=== PATIENT | female | born 1955 | race Caucasian/White ===

== ENCOUNTER 2020-07-22 01:06 | Outpatient (CLI) | payer OTHER, SELFPAY ==
[2020-07-22 18:21] LABS: SARS-CoV-2 RNA PCR Negative
== END 2020-07-22 01:07 | disposition home or self-care (01) ==
LOC: ANHCOVIDDT 01:07
PROVIDERS: PCP Internal Medicine; Visit Provider Urology
DX: Z01.818 Encounter for other preprocedural examination (principal); Z20.828 Contact with and (suspected) exposure to other viral communicable diseases
CPT/HCPCS: 87635; C9803; U0003

== ENCOUNTER 2020-07-22 11:20 | Outpatient (CLI) | payer OTHER, SELFPAY ==
--- NOTE | 2020-07-22 11:23 | ECG_ITS ---
Measurements Intervals [place] Rate: 94 P: 37 CO: 153 QRS: 10 QRSD: 74 T: 59 QT: 364 QTc: 455 Interpretive Statements SINUS RHYTHM NONSPECIFIC ST & T-WAVE ABNORMALITY- DIFFUSE LEADS BASELINE ARTIFACT- I, III, AVR, AVL, AVF, V1-V6 BORDERLINE ECG Electronically Signed On 07-22-2020 12:03:15 ELEMENTARY PRINCIPAL by True Driscoll D.O.
[2020-07-22 11:59] LABS: INR 0.9; Prothrombin Time 12.5 Seconds (11.1-14.7)
[2020-07-22 12:00] LABS: Partial Thromboplastin Time 27.5 SECONDS (22.3-36.8)
[2020-07-22 12:02] LABS: Anion Gap 8 mmol/L (8-16); Blood Urea Nitrogen 19 mg/dL (7-17); Calcium 8.8 mg/dL (8.4-10.2); Carbon Dioxide 29 mmol/L (22-30); Chloride 102 mmol/L (98-107); Estimated Glomerular Filt Rate 56; Glucose 308 mg/dL (65-105); Potassium 4.7 mmol/L (3.4-5.0); Sodium 139 mmol/L (137-145)
== END 2020-07-22 11:21 | disposition home or self-care (01) ==
LOC: ANHSURGERY 11:23
PROVIDERS: Anesthesiology; PCP Internal Medicine; Visit Provider Urology
DX: N20.0 Calculus of kidney (principal); E11.9 Type 2 diabetes mellitus without complications; I10 Essential (primary) hypertension; Z01.818 Encounter for other preprocedural examination
CPT/HCPCS: 36415; 80048; 85610; 85730; 87086; 87088; 93005

== ENCOUNTER 2020-07-24 01:49 | Day surgery (SDC) | payer OTHER, SELFPAY ==
[2020-07-21 15:42] VITALS: BMI 32.8
[2020-07-24] VITALS (8 sets, daily range): BP systolic 129–185; BP diastolic 72–97; PULSE 86–110; RESP 12–20; TEMP 36.6–36.7; O2SAT 96–100
--- NOTE | ~2020-07-24 | XR_ITS ---
EXAMINATION: XR abdomen/kub 1V EXAM DATE: 07/24/2020 06:17 INDICATION: Right-sided lithotripsy scheduled. TECHNIQUE: Frontal projection(s) of the abdomen for interpretation. There is no prior study for leda alfredo. FINDINGS: Multiple densities projecting over the gluteal regions probably soft tissue granulomas. Dif ficult to identify any definite nephrolithiasis but correlation with prior imaging would be helpful. There are mild bony degenerative changes. Nonobstructive bowel gas pattern. IMPRESSION: Soft tissue calcifications. Reviewed, dictated and finalized at location A. RAFT ENGINE TECHNICIAN IMPRESSION: Soft tissue calcifications.
--- NOTE | 2020-07-24 06:37 | WPDHPUPDATE1 ---
History and Physical Update Update Date/Time: 07/24/20 06:37 History and Physical has been reviewed, including an updated exam of the patient. There are NO changes in the patient's condition. Risks, benefits, and alternatives have been discussed and questions answered. Patient agrees to proceed with procedure.
--- NOTE | 2020-07-24 06:58 | WPDANESEPPF ---
Anes - Initial Pre Proc Eval Procedure: Operation Date: 07/24/20 07:30 Proposed Procedures p Right Renal Extracorporeal Shock Wave Lithotripsy - Alexander Tidwell MD s Cystoscopy, Right Stent Placement, Left Ureteroscopy - Alexander Tidwell MD Date/Time: 07/24/20 06:58 Surgeon: Alexander Tidwell MD Pre Op Diagnosis: right renal stone, left ureteral stone Patient Data Age: 65 Gender: F Height: 5 ft 3 in Weight: 84 kg Allergies Allergy/AdvReac Type Severity Reaction Status Date / Time clavulanic acid AdvReac Mild Flushing Verified 07/24/20 06:56 [From Augmentin] Sulfa (Sulfonamide AdvReac Mild Flushing Verified 07/24/20 06:56 Antibiotics) Home Medications Medication Instructions Recorded Confirmed Type glimepiride 1 mg PO BID 07/21/20 07/24/20 History losartan 100 mg PO QAM 07/21/20 07/24/20 History metformin 1,000 mg PO BID 07/21/20 07/24/20 History rosuvastatin 10 mg PO HS 07/21/20 07/24/20 History semaglutide [Ozempic] 2 mg SUBCUT WEEKLY 07/21/20 07/24/20 History Patient hx anesthesia problems: none Family hx anesthesia problems: none PMFSH Past Medical History Medical History Diabetes Hyperlipidemia Hypertension Family History Family History Other Family history of malignant neoplasm Social History Social History Smoking status: Former smoker Smoking end date: 02/18/78 Additional smoking assessment comments: 1 PACK/WEEK X 3 YEARS TOTAL Alcohol intake: never Substance use: never Living arrangements: with family Spiritual care concerns: No Anes - Eval Final PreProcedure Day of Procedure 07/24/20 06:58 Patient weight: obese Heart: regular rate and rhythm Lungs: clear to auscultation Airway: Mallampati scale class II Neurological: alert and oriented Last oral intake: >/= 8 hours ASA classification: III Emergent: no Anesthetic plan: proceed Anesthesia type and monitoring: general LMA and standard monitoring Informed Consent: The patient's anesthetic plan and its attendant risks and benefits were discussed with the patient/family/POA. Questions were solicited and answers provided to the satisfaction of the patient/family/POA.
[2020-07-24] MEDS: LACTATED RINGERS 1,000 ML 30 ML IV CONT (07:00)
[2020-07-24 07:12] LABS: Glucose Point of Care 210 (65-105)
[2020-07-24] MEDS: ceFAZolin 2 GM/D5W 50 ML 2 GM/50 ML BAG IVPB (07:19)
--- NOTE | 2020-07-24 07:57 | PM.PROC ---
Procedure Note - Detailed Date of procedure: 07/24/20 Pre-op diagnosis: right renal stone, left ureteral stone Post-op diagnosis: same (Right renal stone) Procedure performed: Description of procedure: Patient is brought to the operative suite where she was first prepped draped in routine sterile fashion while a dorsal lithotomy position. Cystoscopy and left ureteroscopy undertaken with a short taper semi rigid ureteral scope. The bladder was endoscopically normal without performed via neoplasm. Left distal ureteroscopy was undertaken to the iliac vessels without any to place a wire or stent. There are no ureteral stones or other identifiable pathology. 0.035 in guidewire was advanced in the right renal pelvis and 4.8 F variable length stent with the proximal coil in the renal pelvis and the distal coil bladder. Scopes wires were removed and she was placed in the supine position. Lithotripsy was undertaken the [employer] Lithotripter. A total of 2500 shocks were delivered at a power setting 5. This treatment was for a 24mm right renal pelvic stone. Anesthesia: GLMA Surgeon: Alexander Tidwell MD Estimated blood loss (mL): 0 Drains: Yes (4.8F right renal stent) Packing: No Pathology: none sent Complications: No immediate complications Condition: stable Disposition: PACU
[2020-07-24 08:37] LABS: Glucose Point of Care 225 (65-105)
--- NOTE | 2020-07-24 09:25 | SUR.PHASEII ---
7949- from pacu. ambulated to bathroom. feels need to urinate.
== END 2020-07-24 10:26 | disposition home or self-care (01) ==
PROVIDERS: PCP Internal Medicine; Visit Provider Urology
PROC: (CPT 50590; principal; 2020-07-24 07:30)
PROC: (CPT 52352; 2020-07-24 07:30)
DX: N20.0 Calculus of kidney (principal); I10 Essential (primary) hypertension; E87.5 Hyperkalemia; E11.9 Type 2 diabetes mellitus without complications; Z79.84 Long term (current) use of oral hypoglycemic drugs; Z87.891 Personal history of nicotine dependence; E66.9 Obesity, unspecified; Z68.36 Body mass index [BMI] 36.0-36.9, adult
CPT/HCPCS: 52332; 50590; 36415; 74018; 80048; 85610; 85730; 87086; 87088; 87635; 93005; A9270; C1769; C1894; C2617; C9803; J0690; J1100; J2250; J2370; J2405; J2704; J7120; U0003

== ENCOUNTER 2020-08-31 11:09 | Outpatient (CLI) | payer OTHER, SELFPAY ==
--- NOTE | ~2020-08-31 | XR_ITS ---
EXAMINATION: XR abdomen/kub 1V INDICATION: Right-sided kidney stone TECHNIQUE: Supine views of the abdomen were obtained on 2 radiographs. COMPARISON: 07/24/2020 FINDINGS: A right internal ureteral stent has been placed in expected position. No definite urolithia sis is identified. The bowel gas pattern is normal. Soft tissue calcifications projecting in the pelv is are likely within the gluteus muscles and are of unclear significance. IMPRESSION: 1. Right internal ureteral stent placed in expected position. No definite urolithiasis identified. Reviewed, dictated and finalized at location A. ERCIAL CREDIT OFFICER IMPRESSION: 1. Right internal ureteral stent placed in expected position. No definite uroli thiasis identified.
== END 2020-08-31 11:10 | disposition home or self-care (01) ==
PROVIDERS: PCP Internal Medicine; Visit Provider Urology
DX: N20.0 Calculus of kidney (principal)
CPT/HCPCS: 74018

== ENCOUNTER 2020-09-03 14:22 | Outpatient (CLI) | payer OTHER, SELFPAY ==
--- NOTE | ~2020-09-03 | CT_ITS ---
EXAMINATION: CT abdomen pelvis wo con DATE: 09/03/2020 14:47 INDICATION: Right kidney stone. TECHNIQUE: Computed tomography (CT) of the abdomen and pelvis was performed without intravenous contr ast. Automated exposure control and iterative reconstruction technique were employed. The dose-length product was 567.23 mGy-cm. COMPARISON: None. FINDINGS: The visualized portions of the lung bases demonstrate minimal atelectasis. There is a 4 mm nodule in right lower lobe, likely benign. No pleural effusion. The heart size is normal. There are c oronary artery calcifications. No pericardial effusion. There is diffuse hepatic steatosis. The splee n, gallbladder, pancreas, and adrenal glands are normal. There is cortical thinning of the kidneys. T here is an 8 mm stone or tight cluster of stones in right kidney. There is a 4 mm stone in right kidn ey. There is a right internal ureteral stent in expected position. There are four 1-2 mm stones in ri ght kidney along the stent. There is diverticulosis of the colon without evidence of diverticulitis. There are no dilated loops of bowel. The appendix is normal. There are no pathologically enlarged lym ph nodes. There is no free intraperitoneal fluid. There is an umbilical hernia containing fat. There is calcified old fat necrosis in the buttocks bilaterally. There is mild thoracolumbar spondylosis. IMPRESSION: 1. Right kidney stones with right internal ureteral stent in expected position. Reviewed, dictated and finalized at location A. ET TRIMMER
== END 2020-09-03 14:23 | disposition home or self-care (01) ==
PROVIDERS: PCP Internal Medicine; Visit Provider Urology
DX: N20.0 Calculus of kidney (principal)
CPT/HCPCS: 74176

== ENCOUNTER 2020-09-04 02:49 | Day surgery (SDC) | payer OTHER, SELFPAY ==
[2020-09-03 10:10] VITALS: BMI 36.3
--- NOTE | ~2020-09-04 | XR_ITS ---
EXAMINATION: XR retrograde pyelogram RT EXAM DATE: 09/04/2020 07:56 INDICATION: Stent removal, retrograde, stone extraction on the right. TECHNIQUE: Fluoroscopy used during XR retrograde pyelogram RT performed by Dr. Alexander Tidwell MD . The DAP for this procedure was 809 radcm2 Cine run(s) available for review. FINDINGS: Right ureter was cannulated, procedure equipment advanced to the right renal pelvis which was then injected. There is mild right hydronephrosis. Correlate with procedure note. IMPRESSION: Fluoroscopy used during XR retrograde pyelogram RT. Reviewed, dictated and finalized at location D. D WOOD TESTER
[2020-09-04 06:13] VITALS: BP 160/100; PULSE 115; RESP 20; TEMP 36.6; O2SAT 100
--- NOTE | 2020-09-04 06:42 | WPDANESEPPF ---
Anes - Initial Pre Proc Eval Procedure: Operation Date: 09/04/20 07:30 Proposed Procedures p Cystoscopy, Right Stent Removal with Stone Extraction - Alexander Tidwell MD s Possible Holmium Laser Procedure - Alexander Tidwell MD Date/Time: 09/04/20 06:42 Surgeon: Alexander Tidwell MD Pre Op Diagnosis: Right Kidney Stone Patient Data Age: 65 Gender: F Height: 5 ft 3 in Weight: 93 kg Allergies Allergy/AdvReac Type Severity Reaction Status Date / Time clavulanic acid AdvReac Mild Flushing Verified 09/03/20 10:09 [From Augmentin] Sulfa (Sulfonamide AdvReac Mild Flushing Verified 09/03/20 10:09 Antibiotics) Home Medications Medication Instructions Recorded Confirmed Type Ozempic 2 mg SUBCUT WEEKLY 07/21/20 09/03/20 History glimepiride 1 mg PO BID 07/21/20 09/03/20 History losartan 100 mg PO QAM 07/21/20 09/03/20 History metformin 1,000 mg PO BID 07/21/20 09/03/20 History rosuvastatin 10 mg PO HS 07/21/20 09/03/20 History Patient hx anesthesia problems: none Family hx anesthesia problems: none PMFSH Past Medical History Medical History Diabetes Hyperlipidemia Hypertension Family History Family History Other Family history of malignant neoplasm Social History Social History Smoking status: Former smoker Tobacco type: cigarettes Smoking end date: 02/18/78 Additional smoking assessment comments: STATES 1PK/WK/3YRS - QUIT 1977 Alcohol intake: never Substance use: never Living arrangements: with family Spiritual care concerns: No Anes - Eval Final PreProcedure Day of Procedure 09/04/20 06:42 Patient weight: obese Heart: regular rate and rhythm Lungs: clear to auscultation Airway: Mallampati scale class II Neurological: alert and oriented Last oral intake: >/= 8 hours ASA classification: III Emergent: no Anesthetic plan: proceed Anesthesia type and monitoring: general LMA and standard monitoring Informed Consent: The patient's anesthetic plan and its attendant risks and benefits were discussed with the patient/family/POA. Questions were solicited and answers provided to the satisfaction of the patient/family/POA.
--- NOTE | 2020-09-04 06:47 | WPDHPUPDATE1 ---
History and Physical Update Update Date/Time: 09/04/20 06:47 History and Physical has been reviewed, including an updated exam of the patient. There are NO changes in the patient's condition. Risks, benefits, and alternatives have been discussed and questions answered. Patient agrees to proceed with procedure.
[2020-09-04] MEDS: LACTATED RINGERS 1,000 ML 30 ML IV CONT (06:59)
[2020-09-04 07:06] LABS: Glucose Point of Care 285 (65-105)
[2020-09-04] MEDS: ceFAZolin 2 GM/D5W 50 ML 2 GM/50 ML BAG IVPB (07:24)
[2020-09-04] MEDS: LIDOCAINE HCL 2% GEL UROJET 10 ML PKG MUCOUS MEM (07:27)
[2020-09-04] MEDS: KETOROLAC 30 MG/ML VIAL (*BKC) 15 MG IV PUSH (07:53)
--- NOTE | 2020-09-04 07:57 | PM.PROC ---
Procedure Note - Detailed Date of procedure: 09/04/20 Pre-op diagnosis: Right Kidney Stone Post-op diagnosis: same Procedure performed: 1. Cystoscopy with right ureteral stent 2. Right retrograde pyelogram 3. Right ureteroscopy with stone extraction Description of procedure: Patient is brought to the cystoscopy suite where she is prepped and draped in routine sterile fashion while in dorsal lithotomy position after the uneventful induction of a general LMA anesthetic. Nineteen F rigid cystoscope was placed in the bladder. The bladder's without mucosal abnormalities except for some edema around the right ureteral orifices result of her indwelling stent. Tip of the stent is grasped and it is removed with ease. A 0.035 in glidewire was advanced into the right renal pelvis. Distal ureter dilated with an 8 F / 10 F dilator and a 12 F/ 14 F ureteral access sheath was placed. Retrograde pyelography is performed with 10 cc of contrast to outline the collecting system. Using a 7.5 F flexible ureteral scope all calices were inspected. She has multiple tiny for residual fragments following her lithotripsy. The largest of these are no bigger than 2 mm. The larger fragments were removed with a Zero tip basket. There probably 6 or 7 tiny fragments which were left in the mid pole calyx. A patient is intolerant of stents and therefore I opted not to replace it. Scopes was removed she was taken recovery in good condition Anesthesia: GLMA Surgeon: Alexander Tidwell MD Descriptive Catalog Librarian: None Estimated blood loss (mL): 0 Drains: No Packing: No Pathology: yes (Right kidney stones) Complications: No immediate complications Condition: stable Disposition: PACU
[2020-09-04 07:59] VITALS: BP 122/74; PULSE 87; RESP 13; TEMP 37.6; O2SAT 99
[2020-09-04 08:08] LABS: Glucose Point of Care 286 (65-105)
[2020-09-04 08:10] VITALS: BP 139/86; PULSE 92; RESP 14; O2SAT 100
--- NOTE | 2020-09-04 08:12 | SUR.PHASEI ---
0812 - Dr. Ramesh called and aware of 286 accucheck. no orders received
[2020-09-04 08:25] VITALS: BP 155/79; PULSE 72; RESP 16; O2SAT 98
[2020-09-04 08:34] VITALS: BP 178/92; PULSE 91; RESP 16
== END 2020-09-04 09:08 | disposition home or self-care (01) ==
PROVIDERS: PCP Internal Medicine; Visit Provider Urology
PROC: (CPT 52352; principal; 2020-09-04 07:30)
DX: N20.2 Calculus of kidney with calculus of ureter (principal); Z79.84 Long term (current) use of oral hypoglycemic drugs; E11.9 Type 2 diabetes mellitus without complications; I10 Essential (primary) hypertension; E78.5 Hyperlipidemia, unspecified; Z87.891 Personal history of nicotine dependence; E66.9 Obesity, unspecified; Z68.42 Body mass index [BMI] 45.0-49.9, adult
CPT/HCPCS: 52352; 74420; 82365; 88300; A9270; C1769; J0690; J1885; J2370; J2405; J2704; J3010; J7120

== ENCOUNTER 2021-03-01 10:56 | Outpatient (CLI) | payer OTHER, SELFPAY ==
--- NOTE | ~2021-03-01 | XR_ITS ---
EXAMINATION: XR abdomen/kub 1V EXAM DATE: 03/01/2021 11:17 INDICATION: Right flank pain. History kidney stones. TECHNIQUE: Frontal projection of the upper abdomen, frontal projection lower abdomen/pelvis for inter pretation. Comparison is made to prior examination from 08/31/2020. FINDINGS: Bilateral gluteal granulomas. Previously seen right ureteral stent has been removed. The r enal contours are identified and no suspicious calcifications overlying these. There is evidence of m ild bilateral renal atrophy. There is no organomegaly. There is a nonobstructive bowel gas pattern. T here are mild bony degenerative changes. IMPRESSION: 1. Mild renal atrophy. 2. No suspicious soft tissue calcifications identified. Reviewed, dictated and finalized at location A.
== END 2021-03-01 10:57 | disposition home or self-care (01) ==
LOC: ANHIMG 11:02
PROVIDERS: PCP Internal Medicine; Visit Provider Nurse Practitioner Adult Health
DX: N20.0 Calculus of kidney (principal)
CPT/HCPCS: 74018

== ENCOUNTER 2021-03-04 14:33 | Outpatient (CLI) | payer OTHER, SELFPAY ==
--- NOTE | ~2021-03-04 | XR_ITS ---
EXAMINATION: XR abdomen/kub 1V DATE: 03/04/2021 14:59 INDICATION: Kidney stone on right. TECHNIQUE: A supine view of the abdomen on 2 radiographs was obtained. COMPARISON: CT abdomen and pelvis 09/03/2020, abdomen radiographs 03/01/2021 FINDINGS: There are no dilated loops of bowel. There are subcutaneous calcifications of the buttocks bilaterally, consistent with old fat necrosis. IMPRESSION: 1. No visible urolithiasis. Reviewed, dictated and finalized at location A. IMPRESSION: 1. No visible urolithiasis.
== END 2021-03-04 14:34 | disposition home or self-care (01) ==
PROVIDERS: PCP Internal Medicine; Visit Provider Nurse Practitioner Adult Health
DX: N20.0 Calculus of kidney (principal)
CPT/HCPCS: 74018

== ENCOUNTER 2024-06-10 12:30 | Outpatient (RCR) | payer MEDICARE, SELFPAY ==
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
--- NOTE | 2024-05-22 16:33 | OPREHPOC ---
Outpatient Therapy Plan of Care This is a Multidisciplinary Plan of Care that may contain components documented by all disciplines (PT, OT, and ST.) PT Goal 1 Goal / Goal Update Pt will be independent in HEP Pt will verbalize understanding of diagnosis and prognosis Target Visit 5 PT Problem 2 PT Problem #2 Impaired Range of Motion PT Goal 1 Goal / Goal Update Pt will demo active ROM dorsiflexion of 0-10 with knee flexed Target Visit 5 PT Goal 2 Goal / Goal Update Pt will demo active ROM dorsiflexion of 0-10 with knee extended Target Visit 10 PT Goal 1 Goal / Goal Update Pt will demo reduction of edema in left LE by 50% in all tested areas Target Visit 5 PT Goal 2 Goal / Goal Update Pt will demo reduction of edema in left LE by 75% in all tested areas Target Visit 10
--- NOTE | 2024-05-28 09:53 | PCPTNOTE ---
Patient did not show up for scheduled appointment this date.
--- NOTE | 2024-06-12 17:55 | PTOPDC ---
Assessment and note entered by Lisset Herrmann, PT Evaluation Information Assessment Status Discharge - Pt Not Present Diagnosis pain in left foot, effusion left ankle Other ICD-10 Condition Codes ( stiffness left ankle/foot PT) Onset March 11, 2024 Assessment PT Clinical Summary Pt called therapy department and stated her Orthopaedic doctor told her not to go back to therapy until she is healed. She did not give any indication of when this may be. Thus patient will be discharged per request. Plan of Care PT Services Indicated No
== END 2024-06-13 09:13 | disposition home or self-care (01) ==
LOC: ANHHIPT 12:30
PROVIDERS: PCP Physician Assistant Medical; Visit Provider Orthopaedic Surgery
DX: M79.672 Pain in left foot (principal); M25.472 Effusion, left ankle
CPT/HCPCS: 97014; 97035; 97110; 97140; 97161; 97530; G0283

== ENCOUNTER 2024-07-17 09:47 | Outpatient (CLI) | payer MEDICARE, SELFPAY ==
--- NOTE | 2024-07-17 10:29 | ECG_ITS ---
Test Date: 2024-07-17 10:55:51 Measurements Intervals [place] Rate: 81 P: 87 IA: 153 QRS: 7 QRSD: 82 T: 30 QT: 369 QTc: 429 Interpretive Statements SINUS RHYTHM DELAYED PRECORDIAL R/S TRANSITION LOW QRS VOLTAGE IN PRECORDIAL LEADS BORDERLINE ST-T WAVE ABNORMALITY- DIFFUSE LEADS BASELINE ARTIFACT- I, II, III, AVR, AVL, AVF BORDERLINE ECG No previous ECG available for comparison Electronically Signed On 07-17-2024 11:05:57 TEST MAN by True Driscoll D.O.
[2024-07-17 11:05] LABS: Hematocrit 43.1 % (37.0-47.0); Hemoglobin 14.1 g/dL (12.0-15.0)
[2024-07-17 11:18] LABS: Anion Gap 10 mmol/L (4-12); Blood Urea Nitrogen 18 mg/dL (7-17); Calcium 9.1 mg/dL (8.4-10.2); Carbon Dioxide 25 mmol/L (22-30); Chloride 104 mmol/L (98-107); Estimated Glomerular Filt Rate 55; Glucose 197 mg/dL (65-110); Potassium 4.5 mmol/L (3.4-5.0); Sodium 139 mmol/L (137-145)
[2024-07-17 12:42] LABS: Carcinoembryonic Antigen 3.4 ng/mL (0.0-3.0)
== END 2024-07-17 09:48 | disposition home or self-care (01) ==
LOC: ANHSURGERY 09:52
PROVIDERS: Anesthesiology; PCP Physician Assistant Medical; Visit Provider Surgery
DX: Z01.818 Encounter for other preprocedural examination (principal); E11.9 Type 2 diabetes mellitus without complications; E78.5 Hyperlipidemia, unspecified; I10 Essential (primary) hypertension; K63.89 Other specified diseases of intestine
CPT/HCPCS: 36415; 80048; 82378; 85014; 85018; 93005

== ENCOUNTER 2024-07-23 09:16 | Outpatient (CLI) | payer MEDICARE, SELFPAY ==
--- NOTE | ~2024-07-23 | CT_ITS ---
CT of the Abdomen and Pelvis: Indication: Other specified disease of intestine Technique: 2.5 mm axial scans were obtained through the abdomen and pelvis following intravenous adm inistration of 100 cc of Omnipaque 350. Dose reduction technique was used on this scan by utilizing a utomated exposure control and iterative reconstruction technique. The dose-length product (DLP) was 1 066.18 mGy-cm. COMPARISON: 09/03/2020 Findings: Scans through the lung bases are unremarkable. There is diffuse hepatic steatosis. The spleen, pancreas, gallbladder, adrenals and left kidney are w ithin normal limits. 2.6 x 1.5 cm nonobstructing right renal stone present. No evidence of aortic ane urysm. There is a 2.4 x 2.1 cm enlarged probable lymph node just medial to the IVC at the level of th e celiac artery (axial image 46), new from prior exam.. No bowel obstruction or bowel wall thickening. There is no evidence to suggest acute appendicitis. Images through the pelvis were performed. Urinary bladder unremarkable. Stable uterine fibroid. No as cites. Multiple injection granulomata in the buttocks are unchanged. Impression: 2.4 x 2.1 cm probable enlarged lymph node medial to the IVC at the basilic artery, as detailed above, indeterminate. Metastatic disease or focal lymphoma are not completely excluded, though no other arin picious lesions or lymphadenopathy identified. Consider PET/CT. Tissue sampling should also be consid ered, though percutaneous tissue sampling may be difficult given location of the lesion. Reviewed, dictated and finalized at [facility]. WHEELER Impression: 2.4 x 2.1 cm probable enlarged lymph node medial to the IVC at the basilic tana ry, as detailed above, indeterminate. Metastatic disease or focal lymphoma are not completely excluded, though no other suspicious lesions or lymphadenopathy identified. Consider PET/CT. Tissue sampling should also be considered, though percutaneous tissue sampling may be difficult given location of the lesion.
[2024-07-23 09:40] LABS: Estimated Glomerular Filt Rate 45
== END 2024-07-23 09:17 | disposition home or self-care (01) ==
PROVIDERS: PCP Physician Assistant Medical; Visit Provider Surgery
DX: K63.89 Other specified diseases of intestine (principal)
CPT/HCPCS: 74177; Q9967

== ENCOUNTER 2024-07-31 16:09 | Inpatient (IN) | payer MEDICARE, SELFPAY ==
[2024-07-17 10:04] VITALS: BP 183/84; PULSE 86; RESP 16; TEMP 36.9; O2SAT 100; BMI 34.4
--- NOTE | 2024-07-17 10:20 | PC.NURSE ---
Report to the Outpatient Waiting Room, entrance under the green pavilion located off [facility], at time __0930am on date _07/31/24 . Planned Procedure Time: _11:30am .? Time changes happen often and if your time is changed the preop area will call you the afternoon before. - You and your visitor will be asked to self-screen and do not enter if you have any COVID symptoms. Please call surgeon if you need to reschedule. - A mask is optional within the hospital at this time. Patients may have clear liquids (water, carbonated beverages, clear teas, apple juice) until 3 hours prior to surgery with a maximum of 20 ounces. - No food from midnight until time of surgery and no smoking. This includes no chewing gum, candy or mints. Take only the following medications with a SIP of water on the morning of surgery: __Metoprolol and any Preop Meds ( antibiotics) scheduled per Dr Huddleston DO NOT STOP ANY OF YOUR OTHER PRESCRIPTION MEDICATIONS PRIOR TO SURGERY EXCEPT THE FOLLOWING Medications to discontinue per physician ___Ozempic to be reviewed w Dr. Huddleston and pt will call them to verify if to hold or not Date to take last dose TBD Please no make-up, nail divehi, hairspray, perfume, deodorant, or body powder the day of surgery.? No jewelry (including any body piercings) or valuables the day of surgery, leave them at home.? Please take a shower or bath the night before, or the morning of, surgery with an antibacterial soap.?Hibicleanse scrub and prep per Dr Huddleston. Wear comfortable, loose fitting clothing. - Jewelry must be removed prior to entering the operating room.? Rings and piercings that are not removed may be cut off. - The hospital will not accept responsibility for valuables.? - Please leave all valuables, including medications, at home the day of surgery. If you are going home after surgery, a licensed otr refrigerated cdl truck driver must drive you home.? - NO public transportation without another adult if you receive anesthesia. - We recommend that an adult stay with you for 24 hours following discharge. - We also recommend that you do not drive, make important decision, drink alcoholic beverages, or take any drugs that were not prescribed by your health care provider for at least 24 hours after your discharge time. Follow any additional instructions given to you from your surgeon. Telephone instructions given to ___Patient and asked if any additional questions and then verbalized understanding. Patient advised to call surgeon office or pre surgery nurse liaison [phone] if any additional questions.
[2024-07-31] VITALS (12 sets, daily range): BP systolic 121–186; BP diastolic 53–86; PULSE 76–88; RESP 12–18; TEMP 36.1–36.6; O2SAT 93–100; BMI 33.8
[2024-07-31] MEDS: LACTATED RINGERS 1,000 ML 30 ML IV CONT ×2 (09:55→15:03)
[2024-07-31] MEDS: ACETAMINOPHEN 500 MG TABLET 1000 MG PO (10:18)
[2024-07-31] MEDS: KETOROLAC 15 MG/ML VIAL (*BKC) IV PUSH (10:19)
[2024-07-31 10:24] LABS: Glucose Point of Care 184 mg/dl (65-105)
--- NOTE | 2024-07-31 11:05 | WPDHPUPDATE1 ---
History and Physical Update Update Date/Time: 07/31/24 11:05 History and Physical has been reviewed, including an updated exam of the patient. There are NO changes in the patient's condition. Risks, benefits, and alternatives have been discussed and questions answered. Patient agrees to proceed with procedure.
--- NOTE | 2024-07-31 11:15 | WPDANESEPPF ---
Anes - Initial Pre Proc Eval Procedure: Operation Date: 07/31/24 11:30 Proposed Procedures p Laparoscopic Right Geo Colectomy Davinci Assisted - Mitul Huddleston DO Date/Time: 07/31/24 11:15 Surgeon: Mitul Huddleston DO Pre Op Diagnosis: Cecal Mass Patient Data Age: 69 Gender: F Height: 1.6 m Weight: 86.6 kg Last Vital Signs Temp 97.7 F 07/31/24 09:30 Pulse 88 07/31/24 09:30 Resp 18 07/31/24 09:30 BP 186/83 H 07/31/24 09:30 Pulse Ox 100 07/31/24 09:30 O2 Del Method Room Air 07/31/24 09:30 Allergies Allergy/AdvReac Type Severity Reaction Status Date / Time Iodinated Contrast Media Allergy Intermediate Itching Verified 07/31/24 10:24 dapagliflozin (From Farxiga) AdvReac Intermediate yeast Verified 07/31/24 10:24 infection clavulanic acid (From AdvReac Mild Flushing Verified 07/31/24 10:24 Augmentin) Sulfa (Sulfonamide AdvReac Mild Flushing Verified 07/31/24 10:24 Antibiotics) Home Medications ?Medication ?Instructions ?Recorded ?Confirmed ?Type semaglutide 2 mg/dose (8 mg/3 mL) 2 mg (0.75 mL) subcut WEEKLY #3 mL 02/16/24 07/31/24 Rx subcutaneous pen injector (Ozempic) losartan 100 mg tablet 100 mg PO DAILY #90 tabs 04/08/24 07/17/24 Rx metoprolol succinate 50 mg 50 mg PO DAILY #90 tabs 04/08/24 07/17/24 Rx tablet,extended release 24 hr clotrimazole-betamethasone 1 1 applic topical BID PRN rash 06/13/24 07/17/24 History %-0.05 % topical cream metformin 500 mg tablet,extended 1,000 mg (2 x 500 mg) PO BID #360 06/14/24 07/17/24 Rx release 24 hr tabs rosuvastatin 10 mg tablet 10 mg PO QHS #90 tabs 06/14/24 07/17/24 Rx glimepiride 1 mg tablet See Rx Instructions PO BID #270 06/17/24 07/17/24 Rx tabs ciprofloxacin HCl 500 mg tablet 500 mg PO .COMPLEX #1 tablet 07/12/24 07/31/24 Rx metronidazole 500 mg tablet 500 mg PO .COMPLEX #3 tabs 07/12/24 07/31/24 Rx prednisone 50 mg tablet See Rx Instructions .Route 07/12/24 07/17/24 Rx .COMPLEX #3 tabs azithromycin 250 mg tablet See Rx Instructions PO .COMPLEX #6 07/26/24 Rx (Zithromax Z-Masood) tabs Laboratory Tests 07/31/24 07/31/24 10:02 10:17 POC Capillary Glucose 184 H mg/dl (65-105) Blood Type O Positive Antibody Screen Negative Patient hx anesthesia problems: none Family hx anesthesia problems: none Results Review: All pre-operative results and documents have been reviewed as part of the pre-operative evaluation. 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 Patient has vd assistance with [facility] in the past 12 months. Years smoked: 3 Smoking status: Former smoker Tobacco type: cigarettes Smoking end date: 08/21/77 Additional smoking assessment comments: STATES 1PK/WK/3YRS - QUIT 1977 Alcohol intake: never Substance use: never Substance use type: does not use Do You Feel Safe in your Home?: Yes Lack of Transportation: No Lack of Food: Never True Current Housing: I Have Housing Concerned About Future Housing: No Difficulty Paying Gas/Electric Bills: No Difficulty Paying for Meds: No Currently Unemployed: No Education: High School Diploma/GED Difficulty w/ Childcare or Family Care: No Living arrangements: with family Additional living arrangements comments: 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 Gender identity (if verbalized by the patient): Female Sexual Orientation (if Verbalized by the Patient): Straight or Heterosexual Spiritual care concerns: No Anes - Eval Final PreProcedure Day of Procedure 07/31/24 11:15 Patient weight: normal Heart: regular rate and rhythm Lungs: clear to auscultation Airway: Mallampati scale class II Neurological: alert and oriented Last oral intake: >/= 8 hours ASA classification: III Emergent: no Anesthetic plan: proceed Anesthesia type and monitoring: general and standard monitoring Results Review: All pre-operative results and documents have been reviewed as part of the pre-operative evaluation. Informed Consent: The patient's anesthetic plan and its attendant risks and benefits were discussed with the patient/family/POA. Questions were solicited and answers provided to the satisfaction of the patient/family/POA.
[2024-07-31] MEDS: ceFAZolin 2 GM/D5W 50 ML 2 GM/50 ML BAG IVPB (11:33)
[2024-07-31] MEDS: metroNIDAZOLE 500 MG/ISO 100ML 500 MG/100 ML BAG 100 MG IVPB (11:50)
[2024-07-31] MEDS: BUPIVACAINE/EPINEPHRINE 0.5% 30 ML VIAL INFILTRATE (12:57)
--- NOTE | 2024-07-31 15:11 | W.PM.PROC2 ---
Procedure Note - Detailed Date of Procedure 07/31/24 Pre-op Diagnosis Cecal Mass Post-op Diagnosis Same Procedure Performed Laparoscopic right hemicolectomy with ileocolic anastomosis, da Susan assisted Surgeon Mitul Huddleston, DO Anesthesia General and Local (0.5% bupivacaine with epinephrine) Indications This is a 69-year-old woman who presented with a cecal mass found on recent colonoscopy. She had undergone screening colonoscopy on 06/26/2024 and was found to have the cecal mass. She was not having any symptoms of this. A CT was performed and there was an enlarged lymph node at celiac axis but there did not appear to be any concerning findings for malignancy or metastases anywhere else. Discussions were made with the patient about treatment options and decision was made to proceed with robotic assisted laparoscopic right hemicolectomy. Findings Robotic assisted laparoscopic right hemicolectomy with ileocolic anastomosis was performed. A high ligation of the ileocecal vessels was performed and a medial to lateral dissection was carried out. Right hemicolectomy was performed with an isoperistaltic [id number] anastomosis. Indocyanine green was utilized to confirm adequate perfusion to both the proximal and distal resection margins. The mass in the cecum still appeared soft and there was no concerning findings for metastases anywhere else in the abdomen. Description of Procedure Procedure as well as risks, benefits, and alternatives were discussed with the patient.? Written consent was obtained and placed in chart prior to procedure.? Patient was brought back to surgical suite.? She was placed supine on operating table.? Time-out was done to confirm patient and procedure.? She was then intubated by the anesthesia department.? Her abdomen was prepped and draped in sterile fashion using chlorhexidine prep.? An 8 mm incision was made in the left upper quadrant and a 5 mm Optiview trocar was advanced through the abdominal layers under direct visualization.? Once inside the abdominal cavity, carbon dioxide insufflation was used to create a pneumoperitoneum.? Camera was inserted in the abdomen was inspected.? The patient was placed in 5 degree reverse Trendelenburg and 10? rotated left. An 8 mm incision was made in the suprapubic region in midline and an 8 mm trocar was inserted under direct visualization another 8 mm incision was made in the umbilical region just inferior into the left of the umbilicus and an 8 mm trocar was inserted under direct visualization.? A 12 mm incision was made in the left lateral abdomen and a 12 mm trocar was inserted under direct visualization.? An 8 mm incision was made in the left lower quadrant and an 8 mm assist port was placed under direct visualization.? The 5 mm port was then removed and exchanged for an 8 mm port.? The robotic arms were then brought up to the patient's bedside and secured to the ports.? The camera and instruments were then inserted.? I then moved over to the robotic console and took control of the camera and instruments.? Thorough inspection was made around the abdominal cavity.? The omentum was then reflected cephalad over the transverse colon.? The area near the ileocecal valve was grasped and retracted anterior and laterally to tent up the ileocolic pedicle.? Scissors with electrocautery were then used to perform the medial to lateral dissection.? I entered into the avascular plane just inferior to the ileocolic pedicle and carefully dissected cephalad to identify the duodenum.? Once the duodenum was identified and then continued sweeping the retroperitoneal structures posteriorly and then isolated the ileocolic pedicle.? A high ligation of the ileocolic vessels was then performed using a 60 mm vascular staple load.? Hemostasis appeared adequate.? The medial to lateral dissection was then continued cephalad towards the hepatic flexure.? I continued this dissection until I created a window in the hepatocolic ligament.? I then took down the hepatic flexure using the vessel sealer and then continued this dissection caudally along the lateral peritoneal reflections of the ascending colon.? The root of the mesentery at the terminal ileum was then also taken down using scissors with electrocautery to allow adequate mobilization of the terminal ileum up to the transverse colon.? I then used the vessel sealer to continue taken down the mesentery of the terminal ileum all the way to the point of transection and then I also took down the mesocolon towards the point of transection for the transverse colon.? The right branch of the middle colic artery was ligated as the mesocolon was taken down using the vessel sealer.? Indocyanine green was then infused to ensure adequate perfusion to the proximal and distal limbs.? I confirmed adequate perfusion at the point of transection and then used a 60 mm blue load stapler to come across the terminal ileum.? I then identified my point for? proximal transverse colon transection and again came across the colon at this point with a 60 mm blue load stapler.? Once this was done the right colon was completely freed up and was placed over the right lobe of the liver to be? removed at the end the procedure.? The 2 ends of the bowel were then brought together in appeared to come together in a [id number] fashion without any tension.? I placed the terminal ileum alongside the transverse colon in an isoperistaltic fashion.? Enterotomies were then made on the anti mesenteric border of the terminal ileum and transverse colon using scissors with electrocautery.? The 60 mm blue load stapler was then advanced through each enterotomy in the bowel was clamped together in a [id number] fashion.? Once the bowel appeared in proper position I then fired the stapler to create the tkiq-[id number] anastomosis.? The anastomosis was carefully inspected and appeared patent and healthy and viable.? The enterotomy was then closed using 3 0 V lock running suture.? A 2nd layer closure was then performed using 3-0 V lock seromuscular imbricating sutures.? One final inspection was made around the abdominal cavity and hemostasis appeared adequate and no other abnormalities were noted.? A laparoscopic grasper was then placed on the appendix to secure the specimen for extraction.? The robotic instruments were then removed and the robotic arms were disengaged from the ports.? The pneumoperitoneum was released and the ports were then removed.? The patient was flattened out in bed.? A 5 cm transverse incision was made at the lower suprapubic port site using a 15 blade scalpel.? Electrocautery was then used for hemostasis and for dissection through the subcutaneous tissue until the anterior rectus sheath was identified.? The anterior rectus sheath was then transected transversely using electrocautery.? The anterior rectus sheath was then carefully lifted off of the rectus muscle cephalad and caudad using electrocautery.? The peritoneum was then entered vertically between the rectus muscles using electrocautery.? The small Kamlesh wound protector was then inserted and the specimen was then delivered through the wound protector.? One final inspection was made through the small Pfannenstiel incision and no other abnormalities were noted.? The wound protector was then removed.? The peritoneum was then closed using 0 Vicryl running suture.? The anterior rectus sheath was then reapproximated using 0 PDS running suture.? The fascia of the 12 port incision was closed using an 0 Vicryl gvhtwh-wz-urouo suture.? 0.5% bupivacaine with epinephrine was infiltrated locally around the incisions and abdominal wall.? The skin of all the incisions was then approximated using 4 Monocryl subcuticular suture.? Exofin glue was then applied on top.? The patient was then awakened from anesthesia, extubated, and transferred to recovery. Estimated Blood Loss 25 Pathology Yes (right colon) Complications No immediate complications Condition Stable Disposition Floor [facility] Billing Surgery - Charge Forward: Surgery Billing
--- NOTE | 2024-07-31 15:12 | SUR.PHASEI ---
Dr Ramesh made aware of BG of 202. No new orders at this time.
[2024-07-31 15:15] LABS: Glucose Point of Care 202 mg/dl (65-105)
--- NOTE | 2024-07-31 16:15 | ADMGEN ---
This patient, Shilpa Danielson, was admitted to 3 [facility] Surg Room 317-01. Patient/family oriented to hospital policies and general routines including ID bracelet, bed and alarms, visiting hours, pain management, procedures, bathroom and other care routines, personal items, smoking policy, room service/diet, and visiting hours. Information on how to activate the Rapid Response Team has been discussed. Patient/Family are encouraged to report perceived risks to care and to ask questions if they do not understand what they are told or what they should do.
[2024-07-31 16:33] LABS: Glucose Point of Care 230 mg/dl (65-105)
[2024-07-31 17:12] LABS: Estimated CRCL calculation 42 ml/min; Estimated Glomerular Filt Rate 45
[2024-07-31] MEDS: metFORMIN HCL XR 500 MG TAB.SR.24H 1000 MG PO (17:22)
[2024-07-31] MEDS: LACTATED RINGERS 1,000 ML 100 ML IV CONT (17:22)
[2024-07-31] MEDS: ACETAMINOPHEN 325 MG TABLET 650 MG PO (17:22)
[2024-07-31] MEDS: ROSUVASTATIN 10 MG TABLET PO (20:51)
[2024-07-31 21:04] LABS: Glucose Point of Care 396 mg/dl (65-105)
[2024-07-31] MEDS: INSULIN HUMAN REGULAR (*BKC) 100 UNITS/ML 10 UNITS SUB-Q (21:28)
[2024-07-31 22:40] LABS: Glucose Point of Care 346 mg/dl (65-105)
[2024-08-01] MEDS: ACETAMINOPHEN 325 MG TABLET 650 MG PO ×4 (00:02→17:03)
[2024-08-01 00:58] LABS: Glucose Point of Care 258 mg/dl (65-105)
[2024-08-01 05:54] VITALS: BP 153/66; PULSE 82; RESP 18; TEMP 36.4; O2SAT 99
--- NOTE | 2024-08-01 07:41 | WPDANESPN ---
Anes - Prog Note Post-Op Date/Time: 08/01/24 07:41 Cardiovascular status: normal Respiratory status: normal Airway patency: baseline Mental status: baseline Post-Op hydration status: normal Vital Signs: Last Vital Signs Temp 97.6 F 08/01/24 05:54 Pulse 82 08/01/24 05:54 Resp 18 08/01/24 05:54 BP 153/66 H 08/01/24 05:54 Pulse Ox 99 08/01/24 05:54 O2 Del Method Room Air 07/31/24 16:09 O2 Flow Rate 2 07/31/24 16:08 Pain Score (VAS): 0/10 I/O: Intake & Output 07/31/24 07/31/24 08/01/24 15:59 23:59 07:59 Intake Total 150 336 200 Balance 150 336 200 Laboratory Tests 07/31/24 16:55 07/31/24 07/31/24 07/31/24 10:02 10:17 15:08 Creatinine Estim Creat Clear Calc Estimated GFR POC Capillary Glucose 184 H 202 H Blood Type O Positive Antibody Screen Negative 07/31/24 07/31/24 07/31/24 16:29 16:55 20:34 Creatinine 1.20 H Estim Creat Clear Calc 42 Estimated GFR 45 L POC Capillary Glucose 230 H 396 H Blood Type Antibody Screen 07/31/24 08/01/24 22:37 00:55 Creatinine Estim Creat Clear Calc Estimated GFR POC Capillary Glucose 346 H 258 H Blood Type Antibody Screen Post-procedural complaints: none Patient Feedback: Patient satisfied with anesthetic care.
[2024-08-01 08:03] LABS: Glucose Point of Care 172 mg/dl (65-105)
[2024-08-01 08:14] LABS: Hematocrit 42.9 % (37.0-47.0); Hemoglobin 13.9 g/dL (12.0-15.0); Mean Corpuscular HGB Conc 32.4 g/dl (32-36); Mean Corpuscular Hemoglobin 30.6 pg (26-34); Mean Corpuscular Volume 94.5 fl (80-100); Platelet Count Result 262 k/mm3 (150-375); Red Blood Count 4.54 M/mm3 (4.2-5.4); White Blood Count 10.9 K/mm3 (4.5-10.0)
[2024-08-01 08:23] LABS: Anion Gap 7 mmol/L (4-12); Blood Urea Nitrogen 18 mg/dL (7-17); Calcium 9.3 mg/dL (8.4-10.2); Carbon Dioxide 25 mmol/L (22-30); Chloride 104 mmol/L (98-107); Estimated CRCL calculation 36 ml/min; Estimated Glomerular Filt Rate 38; Glucose 171 mg/dL (65-110); Potassium 4.6 mmol/L (3.4-5.0); Sodium 136 mmol/L (137-145)
[2024-08-01] MEDS: ENOXAPARIN 40 MG/0.4 ML SYRINGE SUB-Q (08:32)
[2024-08-01 08:33] VITALS: PULSE 80
[2024-08-01] MEDS: METOPROLOL SUCCINATE EXT REL 50 MG TABCR PO (08:33)
[2024-08-01] MEDS: LOSARTAN POTASSIUM 100 MG TABLET PO (08:33)
[2024-08-01] MEDS: metFORMIN HCL XR 500 MG TAB.SR.24H 1000 MG PO ×2 (08:33→16:21)
[2024-08-01 09:54] VITALS: BP 162/80; PULSE 72; RESP 16; TEMP 36.6; O2SAT 100
[2024-08-01 11:59] LABS: Glucose Point of Care 340 mg/dl (65-105)
--- NOTE | 2024-08-01 12:07 | P.PNGS_ITS ---
Progress Note: A&P Assessment and Plan (1) Cecum mass: Code(s): K63.89 - Other specified diseases of intestine Status: Acute Assessment and Plan: * POD1 following laparoscopic right hemicolectomy and doing well. Bowel function returning. * Advance to full liquids. Will add diabetic restrictions to her diet. * Increase activity, ambulate in the halls * Pathology pending (2) Diabetes: Qualifiers: Diabetes mellitus complication status: without complication Diabetes mellitus correction insulin use: without adjunct faculty for medical terminology use Diabetes mellitus type: type 2 Qualified Code(s): E11.9 - Type 2 diabetes mellitus without complications Code(s): E11.9 - Type 2 diabetes mellitus without complications Status: Acute Assessment and Plan: * Her glucose was over 300 last night and again today. Her home medications have been resumed. Will add corrective insulin sliding scale and diabetic restrictions to her diet. * Could consider Hospitalist consult if hyperglycemia remains an issue. (3) JAXON (acute kidney injury): Code(s): N17.9 - Acute kidney failure, unspecified Status: Acute Assessment and Plan: * Patient lost IV access last night, possibly sometime around 10pm. IV fluids were stopped since that time. Creatinine bumped up to 1.4 on morning labs. * She has no IV access and they have attempted multiple times unsuccessfully. She is tolerating oral intake well, will encourage fluid intake today and repeat labs tomorrow morning. (4) Hypertension: Qualifiers: Hypertension type: primary hypertension Qualified Code(s): I10 - Essential (primary) hypertension Code(s): I10 - Essential (primary) hypertension Status: Acute Plan I have discussed the patient's case and plan of care with Dr. Huddleston. Subjective Subjective Date/Time Seen: 08/01/24 10:07 Post Op day: 1 (Laparoscopic right hemicolectomy with ileocolic anastomosis, da Susan assisted) Patient reports: tolerating liquids well, voiding w/o difficulty, flatus, bowel movement (liquid BM today) and afebrile Interval history: Patient ambulating well and tolerating this well. No nausea or vomiting. Had some bloating last night in the evening that improved after going for a walk around the nurses station. Tolerating clear liquids. Very minimal incisional discomfort that is being controlled with Tylenol. The patient also lost IV access and reports having for attempts at peripheral IV placement that were unsuccessful. She currently does not have any peripheral IV access and fluids were stopped. No other complaints at the time of my exam this morning. I was then called by the nurse after I evaluated the patient around lunchtime. Her glucose was 340 on Accu-Chek. In review of her chart, it appears she had a glucose over 300 last night and received 10 units of regular insulin subQ around 9:00 pm. She had glimepiride ordered, which is her home medication, but this was not given in the morning as it was apparently not seen by nursing initially. Review of Systems Review of Systems: All systems reviewed & are unremarkable except as noted in HPI and below Exam Const: General: comfortable and no acute distress GI: Inspection: non-distended and incision (incisions dry and intact) GI Palp: Yes Soft to palpation, Yes Tenderness to palpation present (GI) (incisional) and No Guarding due to palpation present (GI) Auscultation: normal bowel sounds Neuro: General: moves all extremities and no focal motor deficits Extrem: General: no calf tenderness and no edema Psych: Mental Status: mental status grossly normal Insight: Good insight present (Psych) Objective Data Vital Signs Vital Signs: Vital Signs - 24 hr 07/31/24 15:03 07/31/24 15:15 07/31/24 15:24 Temperature 97 F L Pulse Rate 80 76 Respiratory Rate 12 14 Blood Pressure 139/76 141/67 H Pulse Oximetry 99 100 Oxygen Delivery Simple Face Mask Simple Face Mask Room Air Oxygen Flow Rate 8 8 07/31/24 15:30 07/31/24 15:45 07/31/24 16:00 Temperature Pulse Rate 77 76 78 Respiratory Rate 14 15 14 Blood Pressure 143/66 H 142/64 H 146/67 H Pulse Oximetry 93 95 98 Oxygen Delivery Nasal Cannula Nasal Cannula Nasal Cannula Oxygen Flow Rate 2 2 2 07/31/24 16:08 07/31/24 16:09 07/31/24 16:30 Temperature 97.2 F L 97.7 F Pulse Rate 81 83 Respiratory Rate 18 18 Blood Pressure 130/64 129/79 Pulse Oximetry 98 99 Oxygen Delivery Nasal Cannula Room Air Oxygen Flow Rate 2 07/31/24 16:45 07/31/24 17:15 07/31/24 18:15 Temperature 97.5 F L 97.9 F 97.1 F L Pulse Rate 79 78 83 Respiratory Rate 18 18 18 Blood Pressure 133/74 139/86 121/53 L Pulse Oximetry 98 94 99 Oxygen Delivery Oxygen Flow Rate 07/31/24 21:23 08/01/24 05:54 08/01/24 08:00 Temperature 97.4 F L 97.6 F Pulse Rate 84 82 Respiratory Rate 18 18 Blood Pressure 132/63 153/66 H Pulse Oximetry 97 99 Oxygen Delivery Room Air Oxygen Flow Rate 08/01/24 08:33 08/01/24 09:54 Temperature 97.8 F Pulse Rate 80 72 Respiratory Rate 16 Blood Pressure 162/80 H Pulse Oximetry 100 Oxygen Delivery Oxygen Flow Rate Intake/Output Intake/Output: Intake & Output 07/29/24 07/30/24 07/31/24 08/01/24 23:59 23:59 23:59 23:59 Intake Total 486 440 Balance 486 440 Meds/Results Medications: Active Medications Generic Name Dose Route Start Last Admin Trade Name Freq PRN Reason Stop Dose Admin Acetaminophen 650 mg 07/31/24 18:00 08/01/24 11:49 Acetaminophen 325 Mg Tablet PO 650 mg Q6HR ARAM Administration Dextrose 12.5 gm 07/31/24 16:09 Dextrose 50% 25 Gm/50 Ml Syringe IV PUSH PRN PRN Hypoglycemia Protocol Enoxaparin Sodium 40 mg 08/01/24 09:00 08/01/24 08:32 Enoxaparin 40 Mg/0.4 Ml Syringe SUB-Q 40 mg DAILY ARAM Administration Glimepiride 2 mg 08/01/24 08:00 08/01/24 10:42 Glimepiride 1 Mg Tablet PO Not Given DAILY@0800 [facility] Glimepiride 1 mg 08/01/24 17:00 Glimepiride 1 Mg Tablet PO DAILY@1700 [facility] Glucagon 1 mg 07/31/24 16:09 Glucagon For Inj 1 Mg Vial IM PRN PRN Hypoglycemia Protocol Glucose 15 gm 07/31/24 16:09 Glucose Oral Gel 15 Gm Of Glucse In 37.5 Gm Tube PO PRN PRN Hypoglycemia Protocol Dextrose 1,000 mls @ 100 mls/hr 07/31/24 16:09 Dextrose 5% 1,000 Ml IVPB PRN PRN Hypoglycemia Protocol Losartan Potassium 100 mg 08/01/24 09:00 08/01/24 08:33 Losartan Potassium 100 Mg Tablet PO 100 mg DAILY ARAM Administration Metformin HCl 1,000 mg 07/31/24 17:00 08/01/24 08:33 Metformin Hcl Xr 500 Mg Tab.Sr.24h PO 1,000 mg BID ARAM Administration Metoprolol Succinate 50 mg 08/01/24 09:00 08/01/24 08:33 Metoprolol Succinate Ext Rel 50 Mg Tabcr PO 50 mg DAILY ARAM Administration Morphine Sulfate 2 mg 07/31/24 16:09 Morphine Sulfate (*Crx) 2 Mg/Ml Inj IV PUSH Q2H PRN Breakthrough Pain Rated 4-6 or NPO Morphine Sulfate 4 mg 07/31/24 16:09 Morphine Sulfate (*Crx) 4 Mg/Ml Inj IV PUSH Q2H PRN Breakthrough Pain Rated 7-10 or NPO Naloxone HCl 0.1 mg 07/31/24 16:09 Naloxone Hcl 0.4 Mg/Ml Vial IV PUSH Q2M PRN Opiate Reversal Ondansetron HCl 4 mg 07/31/24 16:09 Ondansetron Inj 4 Mg/2 Ml Vial IV PUSH Q4H PRN Nausea And Vomiting Oxycodone/Acetaminophen 1 tablet 07/31/24 16:09 Oxycodone/Acetaminophen (*Crx) 5-325 Mg Tablet PO Q4H PRN Pain Rated 4-6 Oxycodone/Acetaminophen 1 tab 07/31/24 16:09 Oxycodone/Acetaminophen (*Crx) 10-325 Mg Tablet PO Q6H PRN Pain Rated 7-10 Rosuvastatin Calcium 10 mg 07/31/24 21:00 07/31/24 20:51 Rosuvastatin 10 Mg Tablet PO 10 mg QHS ARAM Administration Labs Labs: Laboratory Results - last 24 hr 07/31/24 07/31/24 07/31/24 15:08 16:29 16:55 WBC RBC Hgb Hct MCV MCH MCHC RDW Plt Count MPV Sodium Potassium Chloride Carbon Dioxide Anion Gap BUN Creatinine 1.20 H Estim Creat Clear Calc 42 Estimated GFR 45 L Glucose POC Capillary Glucose 202 H 230 H Calcium 07/31/24 07/31/24 08/01/24 20:34 22:37 00:55 WBC RBC Hgb Hct MCV MCH MCHC RDW Plt Count MPV Sodium Potassium Chloride Carbon Dioxide Anion Gap BUN Creatinine Estim Creat Clear Calc Estimated GFR Glucose POC Capillary Glucose 396 H 346 H 258 H Calcium 12/08/1308/01/24 08/01/24 07:57 08:02 11:54 WBC 10.9 H RBC 4.54 Hgb 13.9 Hct 42.9 MCV 94.5 MCH 30.6 MCHC 32.4 RDW 13.0 Plt Count 262 MPV 10.0 Sodium 136 L Potassium 4.6 Chloride 104 Carbon Dioxide 25 Anion Gap 7 BUN 18 H Creatinine 1.40 H Estim Creat Clear Calc 36 Estimated GFR 38 L Glucose 171 H POC Capillary Glucose 172 H 340 H Calcium 9.3
[2024-08-01 13:54] VITALS: BP 147/75; PULSE 72; RESP 14; TEMP 36.9; O2SAT 99
[2024-08-01] MEDS: GLIMEPIRIDE 1 MG TABLET PO (16:21)
[2024-08-01] MEDS: INSULIN ASPART (*BKC) 100 UNITS/ML SUB-Q (16:58)
[2024-08-01 17:13] LABS: Glucose Point of Care 242 mg/dl (65-105)
[2024-08-01] MEDS: ROSUVASTATIN 10 MG TABLET PO (20:16)
[2024-08-01 20:23] LABS: Glucose Point of Care 196 mg/dl (65-105)
[2024-08-01 20:37] VITALS: BP 134/75; PULSE 66; RESP 20; TEMP 36.7; O2SAT 100
[2024-08-02] MEDS: ACETAMINOPHEN 325 MG TABLET 650 MG PO ×2 (00:36→06:14)
[2024-08-02 06:00] VITALS: BP 135/69; PULSE 68; RESP 20; TEMP 37; O2SAT 99
[2024-08-02 06:30] LABS: Hematocrit 39.6 % (37.0-47.0); Hemoglobin 12.6 g/dL (12.0-15.0); Mean Corpuscular HGB Conc 31.8 g/dl (32-36); Mean Corpuscular Hemoglobin 30.2 pg (26-34); Mean Platelet Volume 9.8 fl (7.4-10.4); Platelet Count Result 194 k/mm3 (150-375); Red Blood Count 4.17 M/mm3 (4.2-5.4); Red Cell Distribution Width 13.1 % (11.5-14.5); White Blood Count 9.1 K/mm3 (4.5-10.0)
[2024-08-02 06:41] LABS: Anion Gap 6 mmol/L (4-12); Blood Urea Nitrogen 16 mg/dL (7-17); Calcium 8.7 mg/dL (8.4-10.2); Carbon Dioxide 22 mmol/L (22-30); Chloride 108 mmol/L (98-107); Estimated CRCL calculation 50 ml/min; Estimated Glomerular Filt Rate 55; Glucose 181 mg/dL (65-110); Potassium 3.9 mmol/L (3.4-5.0); Sodium 136 mmol/L (137-145)
[2024-08-02 07:50] LABS: Glucose Point of Care 186 mg/dl (65-105)
[2024-08-02] MEDS: metFORMIN HCL XR 500 MG TAB.SR.24H 1000 MG PO (08:59)
[2024-08-02] MEDS: LOSARTAN POTASSIUM 100 MG TABLET PO (08:59)
[2024-08-02] MEDS: METOPROLOL SUCCINATE EXT REL 50 MG TABCR PO (08:59)
[2024-08-02] MEDS: GLIMEPIRIDE 1 MG TABLET 2 MG PO (08:59)
--- NOTE | 2024-08-02 11:20 | P.DS_ITS ---
DS: Admitting Diagnosis Discharge Date 08/02/2024 Admitting Diagnosis Cecal mass, type 2 diabetes, hypertension DS: Discharge Diagnosis Discharge Diagnosis (1) Adenomatous polyp of cecum: Code(s): D12.0 - Benign neoplasm of cecum Status: Acute (2) Diabetes: Qualifiers: Diabetes mellitus type: type 2 Diabetes mellitus manager long term care insulin use: without long-term use Diabetes mellitus complication status: without complication Qualified Code(s): E11.9 - Type 2 diabetes mellitus without complications Code(s): E11.9 - Type 2 diabetes mellitus without complications Status: Acute (3) Hypertension: Qualifiers: Hypertension type: primary hypertension Qualified Code(s): I10 - Essential (primary) hypertension Code(s): I10 - Essential (primary) hypertension Status: Acute DS: Summary Hospital Course Reason for hospitalization: Mass of cecum Hospital Course: This is a 69-year-old woman who presented with a cecal mass. She underwent screening colonoscopy on 06/26/2024 and was found to have a large cecal mass. She was then referred for surgical resection. She underwent robotic assisted laparoscopic right hemicolectomy with ileocolic anastomosis on 07/31/2024. Surgery was uncomplicated and she was admitted to the surgical floor postoperatively. She was started on clear liquid diet. Pain was able to be controlled with oral Tylenol alone. She was up ambulating and was showing signs of bowel function returning on postop day 1. Her diet was advanced to a full liquid diet. On postop day 2 she was advanced to a diabetic regular diet. She remained hemodynamically stable and pain was well controlled. Pathology showed evidence of tubular adenoma with high-grade dysplasia. There were no signs of adenocarcinoma. She was discharged on 08/02/2024. Status at Discharge Functional status at discharge: independent ambulation Overall status at discharge: patient is progressing back to baseline Time Spent with Patient Time attestation: Total time spent providing and/or coordinating discharge services: Time spent: Less than 30 minutes Exam Const: General: comfortable and no acute distress Resp: Effort & Inspection: normal respiratory effort Auscultation: clear to auscultation bilaterally Cardio: Rate: regular rate Rhythm: regular rhythm Heart sounds: S1 normal heart sound present and S2 normal heart sound present GI: Inspection: incision (Intact with glue) GI Palp: Yes Soft to palpation, No Tenderness to palpation present (GI) and No Guarding due to palpation present (GI) Auscultation: normal bowel sounds DS: Data Data Completed and Pending Completed studies during hospitalization: Pending at discharge 07/31/24 14:23 Surgical [PTH] Routine Final Diagnosis Large/small intestine, right colon, hemicolectomy: - Tubular adenoma with high grade dysplasia, 4.3 cm - Surgical margins negative for adenoma - Appendix with benign fibrous obliteration - Sixteen lymph nodes with no histologic abnormality (0/16) Reviewed and Electronically Signed by: Erik Torres MD 08/02/24 1100 Labs on day of discharge: Labs from last 24 hours 08/02/24 08/02/24 08/01/24 07:45 06:17 19:52 WBC 9.1 RBC 4.17 L Hgb 12.6 Hct 39.6 MCV 95.0 MCH 30.2 MCHC 31.8 L RDW 13.1 Plt Count 194 MPV 9.8 Sodium 136 L Potassium 3.9 Chloride 108 H Carbon Dioxide 22 Anion Gap 6 BUN 16 Creatinine 1.00 Estim Creat Clear Calc 50 Estimated GFR 55 L Glucose 181 H POC Capillary Glucose 186 H 196 H Calcium 8.7 08/01/24 08/01/24 16:50 11:54 WBC RBC Hgb Hct MCV MCH MCHC RDW Plt Count MPV Sodium Potassium Chloride Carbon Dioxide Anion Gap BUN Creatinine Estim Creat Clear Calc Estimated GFR Glucose POC Capillary Glucose 242 H 340 H Calcium Discharge Plan Discharge Attending physician on discharge: Mitul Huddleston Discharging Clinician: Mitul Huddleston Anticipated Discharge Date/Time: 08/02/24 14:00 Patient Disposition: Home, Self-Care Activity: other - see discharge instructions Diet: diabetic and low fiber Wound Care Instructions: other - see discharge instructions Discharge Instructions: Postoperative instructions * Okay to shower, no bathing or soaking underwater for 2 weeks * May drive 1 week from surgery date * No lifting greater than 10 lb for the next 6 weeks * Take OTC Tylenol or ibuprofen as needed for pain * Call office if pain is worsening, fevers develop, or other problems with incisions * Remain on a soft diabetic diet for 1 week, then may resume regular diabetic diet Patient Instructions: Antibiotic Form Patient Language: Maltese Stand Alone Forms: General Discharge Information Follow-up/Referrals: Mitul Huddleston DO [Physician] - 08/16/24 10:15 am Discharge Medications: No Action ciprofloxacin HCl 500 mg tablet 500 mg PO .COMPLEX Qty: 1 0RF Rx Instructions: 500 mg orally Take 1 tablet at 2:00pm the day before surgery.; metronidazole 500 mg tablet 500 mg PO .COMPLEX Qty: 3 0RF Rx Instructions: 500 mg orally Take 1 tablet at 1:00pm, 2:00pm and 11:00pm the day before surgery.; prednisone 50 mg tablet See Rx Instructions .ROUTE .COMPLEX Qty: 3 0RF Rx Instructions: Take 1 tablet by mouth at 13 hours, 7 hours, and 1 hour prior to contrast; on 07/25/24 clotrimazole-betamethasone 1-0.05 % cream 1 applic topical BID PRN (Reason: rash) Ozempic 2 mg/dose (8 mg/3 mL) pen injector 2 mg subcut WEEKLY Qty: 3 1RF Patient Comments: Pt to hold 8 days before losartan 100 mg tablet 100 mg PO DAILY Qty: 90 1RF metoprolol succinate 50 mg tablet extended release 24 hr 50 mg PO DAILY Qty: 90 1RF metformin 500 mg tablet extended release 24 hr 1,000 mg PO BID Qty: 360 0RF rosuvastatin 10 mg tablet 10 mg PO QHS Qty: 90 0RF glimepiride 1 mg tablet See Rx Instructions PO BID Qty: 270 0RF Dose Instruction: TAKE 2 TABLETS IN THE MORNING AND 1 TABLET EVERY IN THE EVENING Rx Instructions: TAKE 2 TABLETS IN THE MORNING AND 1 TABLET EVERY IN THE EVENING orally twice a day; azithromycin [Zithromax Z-Masood] 250 mg tablet See Rx Instructions PO .COMPLEX Qty: 6 0RF Rx Instructions: For 250 mg dose pack: take 500 mg today (day 1), then 250 mg for 4 days (days 2-5) PO Date of admission: 07/31/24 16:09 Primary Care Provider: Esther Hopkins Admitting Provider: Mitul Huddleston Attending physician on admission: Mitul Huddleston Condition: Stable
[2024-08-02 11:39] LABS: Glucose Point of Care 274 mg/dl (65-105)
[2024-08-02] MEDS: INSULIN ASPART (*BKC) 100 UNITS/ML SUB-Q (13:08)
== END 2024-08-02 13:15 | disposition home or self-care (01) | DRG 330 ==
LOC: ANH3MEDSUR 16:44
PROVIDERS: Nurse Practitioner Family; Admitting Provider Surgery; PCP Physician Assistant Medical; Visit Provider Surgery
PROC: 0DTF4ZZ Resection of Right Large Intestine, Percutaneous Endoscopic Approach (ICD-10-PCS; principal; 2024-07-31 11:30)
DX: D12.0 Benign neoplasm of cecum (principal); N17.9 Acute kidney failure, unspecified; I10 Essential (primary) hypertension; E11.9 Type 2 diabetes mellitus without complications; E78.5 Hyperlipidemia, unspecified; Z87.891 Personal history of nicotine dependence
CPT/HCPCS: 36415; 80048; 82378; 82565; 82948; 85014; 85018; 85027; 86850; 86900; 86901; 88309; 93005; A9270; J0690; J1100; J1171; J1650; J1815; J1836; J1885; J2003; J2250; J2405; J2704; J3010; J7120

== ENCOUNTER 2024-11-22 10:06 | Outpatient (CLI) | payer MEDICARE, SELFPAY ==
--- NOTE | ~2024-11-22 | CT_ITS ---
Non-contrast CT scan of the Abdomen and Pelvis Clinical indication: Abnormal findings on diagnostic imaging Technique: 2.5 mm axial scans were obtained through the abdomen and pelvis without intravenous or or al contrast. Dose reduction technique was used on this scan by utilizing automated exposure control a nd iterative reconstruction technique. The dose-length product (DLP) was 1065.36 mGy-cm. COMPARISON: 07/23/2024 Findings: Images through the lung bases reveal no abnormalities. Large nonobstructing right renal stone measures 2.8 x 1.6 cm in size. No left renal stone. No uretera l stone or hydronephrosis on either side. The liver, spleen, pancreas, gallbladder, and adrenals appear normal. There are atherosclerotic calci fications of the aorta. 2.4 x 2.3 cm mass present just medial to the IVC (axial image 43), stable fro m prior exam.. There is no evidence of bowel obstruction. Evidence of prior right partial colectomy. Images through the pelvis were performed. There is no evidence of ascites or lymphadenopathy. Urinary bladder unremarkable. Small uterine fibroid probably present. Impression: Stable 2.4 x 2.3 cm mass or enlarged lymph node just medial to the IVC, as detailed above. This remai ns indeterminate, though stability is a reassuring sign. Large nonobstructing right renal stone, as detailed above, essentially stable from prior exam. Reviewed, dictated and finalized at location M. Impression: Stable 2.4 x 2.3 cm mass or enlarged lymph node just medial to the IVC, as deta iled above. This remains indeterminate, though stability is a reassuring sign. Large nonobstructing right renal stone, as detailed above, essentially stable f rom prior exam.
== END 2024-11-22 10:07 | disposition home or self-care (01) ==
LOC: MICIMG 10:07
PROVIDERS: PCP Surgery; Visit Provider Surgery
DX: R93.5 Abnormal findings on diagnostic imaging of other abdominal regions, including retroperitoneum (principal); N20.0 Calculus of kidney
CPT/HCPCS: 74176

== ENCOUNTER 2025-06-09 11:14 | Outpatient (CLI) | payer MEDICARE, SELFPAY ==
--- NOTE | ~2025-06-09 | CT_ITS ---
CT abdomen pelvis w con INDICATION:Abnormal findings on diagnostic imaging . COMPARISON: 11/22/2024 TECHNIQUE: Axial images of the abdomen and pelvis were obtained following infusion of 100 mL Isovue 300. Dose optimization technique was utilized. FINDINGS: The lung bases are clear. Fatty infiltration of the liver is noted. No intrahepatic mass or ductal dilatation is evident. The gallbladder is unremarkable. The pancreas and spleen are normal in appearance. The adrenal glands are symmetric in size. The kidneys demonstrate symmetric uptake and excretion of contrast. No cystic mass is evident. There is no solid mass. There is no hydronephrosis. Nonobstructive right renal stone measures 3 x 1.9 cm. Evaluation of the stomach and bowel loops are limited due to lack of oral contrast. There is colonic diverticulosis without evidence of acute diverticulitis. There is no bowel obstruction or acute appendicitis. The bladder and rectum are normal. No free intraperitoneal fluid or air is evident. 2.8 x 2.8 cm mass adjacent to the IVC previously measured 2.4 x 2.3 cm. The aorta, visceral vessels and renal arteries demonstrate normal caliber and patency. The lower thoracic and lumbar vertebrae are in normal alignment. IMPRESSION: Increase in size of mass adjacent to the IVC measuring 2.8 x 2.8 cm previously measured 2.4 x 2.3 cm. Stable nonobstructive right intrarenal stone. All CT scans at this facility are performed using low dose modulation techniques as appropriate to perform exam including the following: automated exposure control; use of iterative reconstruction technique; adjustment of the mA and/or kV according to patient size (this includes techniques or standardized protocols for targeted exams where dose is matched to indication/reason for exam). Reviewed, dictated and finalized at location S. IMPRESSION: Increase in size of mass adjacent to the IVC measuring 2.8 x 2.8 cm previously measured 2.4 x 2.3 cm. Stable nonobstructive right intrarenal stone. All CT scans at this facility are performed using low dose modulation techniqu es as appropriate to perform exam including the following: automated exposure c ontrol; use of iterative reconstruction technique; adjustment of the mA and/or kV according to patient size (this includes techniques or standardized protocol s for targeted exams where dose is matched to indication/reason for exam).
[2025-06-09 11:38] LABS: Estimated Glomerular Filt Rate 45
== END 2025-06-09 11:15 | disposition home or self-care (01) ==
LOC: MICIMG 11:15
PROVIDERS: PCP Surgery; Visit Provider Surgery
DX: R93.5 Abnormal findings on diagnostic imaging of other abdominal regions, including retroperitoneum (principal); N20.0 Calculus of kidney
CPT/HCPCS: 74177; Q9967

== ENCOUNTER 2025-07-10 09:02 | Outpatient (CLI) | payer MEDICARE, SELFPAY ==
[2025-06-27 14:04] VITALS: BMI 35.4
--- NOTE | 2025-06-27 14:05 | PC.NURSE ---
[facility] has started construction of its new state of the art ER which will open Spring 2026. With this, we anticipate parking may be a challenge for some our surgical patients and families. Parking spaces are limited but are available for all Surgical, obstetrics, and ER patients sharing this lot. If you arrive and find you are having a hard time finding a parking space, please note that we understand the challenges, please drive around the hospital and park near Hospital Entrance 1. When you enter this entrance, you can ask a volunteer to direct or take you back to the surgical waiting area to check in. We appreciate everyone?s understanding of these expected challenges while we build for your future. Report to the outpatient green pavilion on date _[id number]_ at time _0900_ for procedure Time: _1100_ YOU MAY BE MONITORED AT HOSPITAL FOR UP TO 4 HOURS AFTER YOUR PROCEDURE. A visitor will be allowed to accompany the patient into the hospital. You and your visitor will be asked to self-screen and do not enter if you have any COVID symptoms. A mask is OPTIONAL within the hospital. Patients are to have no food or drink 6 hours prior to procedure time Driving will be restricted after the procedure, you must have a person to drive you home. Labs will be drawn in preop area and once reviewed, you will be taken to radiology area for procedure. When the procedure is completed, you will be taken to outpatient where you will be monitored for several hours. You may have one visitor in this area. Other than holding anti-coagulants, patient may take other medication(s) as scheduled. Prior to your appointment date patients are instructed to hold anti-coagulants after discussing with ordering provider to stop. If unable to discontinue anti-coagulants please notify radiologist. ? No aspirin or warfarin (Coumadin) for 7 days prior to the procedure. ? No clopidogrel (Plavix), ticagrelor (Brilinta), prasugrel (Effient) or dabigatran (Pradaxa) for 5 days prior to the procedure. ? No rivaroxaban (Xarelto), apixaban (Eliquis), dipyridamole (Aggrenox or Persantine) or cilostazol (Pletal) for 2 days prior to the procedure. Medications to discontinue per physician: Date to take last dose: Please leave all valuables, including medications, at home the day of procedure. The hospital will not accept responsibility for valuables. Wear comfortable, loose fitting clothing.? Follow any additional instructions given to you from ordering provider. Telephone instructions given to ___Lynn and asked if any additional questions and then verbalized understanding. Patient advised to call scheduling provider office or registration scheduling [phone] if any additional questions.
[2025-07-10 09:30] VITALS: BP 222/83; PULSE 89
[2025-07-10 09:58] LABS: Platelet Count Result 225 k/mm3 (150-375)
[2025-07-10 10:09] VITALS: BP 186/83; PULSE 78; RESP 16; TEMP 37; O2SAT 100
[2025-07-10 10:23] LABS: INR 1.0; Prothrombin Time 13.3 Seconds (11.1-14.7)
--- NOTE | 2025-07-10 10:55 | SUR.PREOP ---
Spoke with Dr. Rosado re: SBPs TODAY; PT did not take scheduled antihypertensives. reviewed home meds with patient for accuracy. Per Dr. Rosado, give pt Regular Home Antihypertensives PO; both meds reviewed with Dr. Rosado.
[2025-07-10 10:57] VITALS: BP 170/83; PULSE 83
[2025-07-10 11:20] VITALS: PULSE 78
[2025-07-10] MEDS: METOPROLOL SUCCINATE EXT REL 50 MG TABCR PO (11:20)
[2025-07-10] MEDS: LOSARTAN POTASSIUM 100 MG TABLET PO (11:20)
[2025-07-10 11:32] VITALS: BP 163/83; PULSE 78
[2025-07-10 12:00] VITALS: BP 180/86; PULSE 80
--- NOTE | 2025-07-10 12:10 | SUR.PREOP ---
PROCEDURE CANCELLED R/T HTN. SPOKE W/ PT AND SPOUSE. WILL RESCHEDULE WITH ORDERING MD.
== END 2025-07-10 09:03 | disposition home or self-care (01) ==
PROVIDERS: PCP Physician Assistant Medical; Referring Provider Surgery; Visit Provider Radiology Diagnostic Radiology
DX: R59.1 Generalized enlarged lymph nodes (principal)
CPT/HCPCS: 36415; 85049; 85610; A9270

== ENCOUNTER 2025-07-25 10:03 | Outpatient (CLI) | payer MEDICARE, SELFPAY ==
--- NOTE | 2025-07-22 14:28 | SUR.PREOP ---
[facility] has started construction of its new state of the art ER which will open Spring 2026. With this, we anticipate parking may be a challenge for some our surgical patients and families. Parking spaces are limited but are available for all Surgical, obstetrics, and ER patients sharing this lot. If you arrive and find you are having a hard time finding a parking space, please note that we understand the challenges, please drive around the hospital and park near Hospital Entrance 1. When you enter this entrance, you can ask a volunteer to direct or take you back to the surgical waiting area to check in. We appreciate everyone?s understanding of these expected challenges while we build for your future. Report to the Radiology department on date _07/25/25____ at time _10 AM for procedure Time: 11 AM____ YOU MAY BE MONITORED AT HOSPITAL FOR UP TO 4 HOURS AFTER YOUR PROCEDURE. A visitor will be allowed to accompany the patient into the hospital. You and your visitor will be asked to self-screen and do not enter if you have any COVID symptoms. A mask is OPTIONAL within the hospital. Patients are to have no food or drink 6 hours prior to procedure time Driving will be restricted after the procedure, you must have a person to drive you home. When the procedure is completed, you will be taken to outpatient where you will be monitored for several hours. You may have one visitor in this area. Other than holding anti-coagulants, patient may take other medication(s) as scheduled. Prior to your appointment date patients are instructed to hold anti-coagulants after discussing with ordering provider to stop. If unable to discontinue anti-coagulants please notify radiologist. ? No aspirin or warfarin (Coumadin) for 7 days prior to the procedure. ? No clopidogrel (Plavix), ticagrelor (Brilinta), prasugrel (Effient) or dabigatran (Pradaxa) for 5 days prior to the procedure. ? No rivaroxaban (Xarelto), apixaban (Eliquis), dipyridamole (Aggrenox or Persantine) or cilostazol (Pletal) for 2 days prior to the procedure. Medications to discontinue per physician: ___NONE Date to take last dose: Please leave all valuables, including medications, at home the day of procedure. The hospital will not accept responsibility for valuables. Wear comfortable, loose fitting clothing.? Follow any additional instructions given to you from ordering provider. In person instructions given to ___PATIENT on [phone] zuy asked if any additional questions and then verbalized understanding. Patient advised to call scheduling provider office or registration scheduling [phone] if any additional questions. PATIENT AWARE TO CONTACT PCP FOR ANXIETY DOSAGE DAY OF PROCEDURE AND TAKE ALL OTHER MEDICATION
[2025-07-25] VITALS (12 sets, daily range): BP systolic 137–169; BP diastolic 74–87; PULSE 57–72; RESP 18; O2SAT 99–100
--- NOTE | ~2025-07-25 | XR_ITS ---
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 Technique: Single view. Findings: The lungs are clear, no effusion. No pneumothorax. Heart is normal size. Mediastinal and hilar contours are within normal limits. Bony thorax no acute abnormality. Impression: No acute cardiopulmonary abnormality. Reviewed, dictated and finalized at location P. [facility] [employer] Impression: No acute cardiopulmonary abnormality.
--- NOTE | ~2025-07-25 | CT_ITS ---
EXAMINATION: CT biopsy abdomen percutaneous DATE: 07/25/2025 12:18 INDICATION: Generalized enlarged lymph nodes TECHNIQUE: The procedure including the risks and benefits was discussed with the patient. Risks discussed included bleeding and infection. The patient understood the risks and agreed to proceed. The skin overlying the paravertebral right flank was prepped and draped in usual sterile fashion. Anesthetic was administered with 1% lidocaine subcutaneously. A 16 gauge outer needle was advanced under CT guidance to the lesion of interest. An 18 gauge core biopsy needle was then advanced into the lesion. 8 core biopsy specimens were obtained, 5 placed in RPMI media and 3 in formalin. The outer needle was removed and the entry site was cleaned and dressed. There were no immediate complications. The dose-length product was 255.60 mGy-cm. FINDINGS: CT images demonstrate the outer needle tip along the peripheral margin of an 2.7 x 2.6 cm aortocaval mass suspicious for numerous lymph node. IMPRESSION: 1. Successful CT-guided biopsy of a 2.7 x 2.6 cm aortocaval mass versus lymph node. Reviewed, dictated and finalized at location A. [employer] IMPRESSION: 1. Successful CT-guided biopsy of a 2.7 x 2.6 cm aortocaval mass versus lymph n ode.
--- NOTE | 2025-07-25 12:23 | S_PTH ---
PATIENT: Shilpa Danielson LOC: [facility] U#:[id number] AGE/SX: 70/F ROOM: RE07/25/[address]: Mike Rosado MD : [id number] BED: DIS: 07/25/2025 SPEC #: [id number] RECD: 07/25/25 12:34 STATUS: LIVIER REZaynab #: [id number] XOCHITL: 07/25/25 12:[address]: Mike Rosado DEPT: [facility] Surgical RECD BY: Priscila Berger ENTERED: 07/25/25 12:35 SP TYPE: Surgical OTHR DR: Esther Hopkins PA-C Tissues: A - Lymph Node Biopsy Procedures: Unstained Slides Hematoxylin and Eosin Stain Gross and Microscopic Level 4 S 100 CD 34 [id number]
== END 2025-07-25 16:40 | disposition home or self-care (01) ==
PROVIDERS: PCP Physician Assistant Medical; Referring Provider Surgery; Visit Provider Radiology Diagnostic Radiology
PROC: BW20ZZZ Computerized Tomography (CT Scan) of Abdomen (ICD-10-PCS; CPT 77012; principal; 2025-07-25 11:00)
DX: R59.1 Generalized enlarged lymph nodes (principal)
CPT/HCPCS: 49180; 71045; 77012; 82948; 88305; 88342